=== PATIENT | female | born 1975 | race Caucasian/White ===

== ENCOUNTER 2022-08-17 09:27 | Day surgery (SDC) | payer BC ==
[~2022-08-17 09:27] MED LIST: Midazolam 1 MG/ML 2 ML SDV ONE; Propofol 200 MG/20 ML SDV ONE; fentaNYL 100 MCG/2 ML SDV ONE
[2022-08-17] MEDS ORDERED: Dextrose 5%-Lactated Ringers 1,000 ML IV SCH (10:00)
[2022-08-17] MEDS ORDERED: Glycopyrrolate 0.2 MG/ML 2 ML SDV IVPUSH ONE (10:00)
[2022-08-17] MEDS ORDERED: Lactated Ringers 1,000 ML IV SCH (10:15)
== END 2022-08-17 12:00 | disposition home or self-care (01) ==
LOC: JP.SDS 09:27
PROVIDERS: ATTEND Surgery
DX: Z46.51 Encounter for fitting and adjustment of gastric lap band (principal); I10 Essential (primary) hypertension; F32.A Depression, unspecified; F41.9 Anxiety disorder, unspecified; E66.01 Morbid (severe) obesity due to excess calories; Z68.42 Body mass index [BMI] 45.0-49.9, adult; Z79.899 Other long term (current) drug therapy; Z88.0 Allergy status to penicillin; Z88.1 Allergy status to other antibiotic agents
CPT/HCPCS: 43235; J2250; J2704; J3010; J3490; J7120

== ENCOUNTER 2022-10-18 04:56 | Inpatient (IN) | payer BC ==
[~2022-10-18 04:56] MED LIST changes: -Midazolam 1 MG/ML 2 ML SDV ONE; -Propofol 200 MG/20 ML SDV ONE; +Sodium Chloride 0.9% 10 ML Syringe FLUSH PRN; -fentaNYL 100 MCG/2 ML SDV ONE
[2022-10-18] MEDS ORDERED: Celecoxib 200 MG Cap PO ONE ×2 (05:53→06:00)
[2022-10-18] MEDS ORDERED: Scopolamine 1.5 MG Transdermal Patch TOP SCH (06:00)
[2022-10-18] MEDS ORDERED: cefOXitin 2 GM Vial ONE (06:36)
[2022-10-18] MEDS ORDERED: Bupivacaine 0.5%/EPINEPHrine 1:200,000 50 ML MDV ONE (06:36)
[2022-10-18] MEDS ORDERED: Dextrose 5%-Lactated Ringers 1,000 ML IV SCH (06:45)
[2022-10-18] MEDS ORDERED: fentaNYL 250 MCG/5 ML SDV ONE ×2 (07:05→07:52)
[2022-10-18] MEDS ORDERED: Ondansetron 4 MG/2 ML SDV ONE (07:05)
[2022-10-18] MEDS ORDERED: Rocuronium 50 MG/5 ML Vial ONE (07:05)
[2022-10-18] MEDS ORDERED: Succinylcholine 200 MG/10 ML MDV ONE (07:05)
[2022-10-18] MEDS ORDERED: Glycopyrrolate 0.2 MG/ML 5 ML MDV ONE (07:05)
[2022-10-18] MEDS ORDERED: Dexamethasone 4 MG/ML SDV ONE (07:05)
[2022-10-18] MEDS ORDERED: Neostigmine Methylsulfate 1 MG/ML 5 ML Syringe ONE (07:05)
[2022-10-18] MEDS ORDERED: Propofol 200 MG/20 ML SDV ONE (07:05)
[2022-10-18] MEDS ORDERED: cefOXitin 2 GM in Sodium Chloride 0.9% 50 ML IV ONE (07:15)
[2022-10-18] MEDS ORDERED: cefOXitin 2 GM Vial IV ONE (08:02)
[2022-10-18] MEDS ORDERED: hydrALAZINE 20 MG/ML SDV ONE (08:19)
[2022-10-18] MEDS ORDERED: fentaNYL 100 MCG/2 ML SDV ONE (09:32)
[2022-10-18] MEDS ORDERED: Lactated Ringers 1,000 ML ONE (09:33)
[2022-10-18] MEDS ORDERED: Acetaminophen 1,000 MG in Premix Bag 1 BAG IV ONE (10:00)
[2022-10-18] MEDS ORDERED: Ketamine 500 MG/5 ML MDV IV SCH (11:15)
[2022-10-18] MEDS: HYDROmorphone 1 MG/ML Syringe IV PRN ×2 (11:15→13:32)
[2022-10-18] MEDS ORDERED: HYDROmorphone 0.5 MG/0.5 ML Syringe IVPUSH PRN (11:15)
[2022-10-18] MEDS ORDERED: Ketamine 17 MG in Sodium Chloride 0.9% 19.83 ML IV SCH (11:15)
[2022-10-18] MEDS ORDERED: Cyclobenzaprine 10 MG Tab PO PRN (11:44)
[2022-10-18] MEDS ORDERED: Ondansetron 4 MG/2 ML SDV IVPUSH PRN (12:00)
[2022-10-18] MEDS ORDERED: diphenhydrAMINE 50 MG/ML SDV IVPUSH PRN (12:00)
[2022-10-18] MEDS ORDERED: Labetalol 20 MG/4 ML Syringe IVPUSH PRN (12:00)
[2022-10-18] MEDS ORDERED: Metoclopramide 10 MG/2 ML SDV IVPUSH PRN (12:00)
[2022-10-18] MEDS ORDERED: Acetaminophen 500 MG Tab PO PRN (12:00)
[2022-10-18] MEDS: hydrOXYzine HCl 50 MG/ML SDV IM PRN ×2 (12:11→16:56)
[2022-10-18] MEDS: Pantoprazole 40 MG Vial IVPUSH SCH (13:33)
[2022-10-18] MEDS: cefOXitin 2 GM in Sodium Chloride 0.9% 50 ML IV SCH ×2 (14:46→19:55)
[2022-10-18] MEDS: oxyCODONE 5 MG Tab PO PRN ×2 (14:50→21:50)
[2022-10-18] MEDS ORDERED: MVI, Adult with Vitamin K 10 ML, Thiamine 200 MG, Zinc/Copper/Manganese/Selenium 1 ML i... IV SCH ×4 (16:00)
[2022-10-18] MEDS: traMADol 50 MG Tab PO PRN (16:55)
[2022-10-18] MEDS: Acetaminophen 500 MG Tab PO SCH (17:00)
[2022-10-18] MEDS: Heparin Sodium 5,000 Units/ML Vial SUBCUT SCH (17:00)
[2022-10-18] MEDS: Dextrose 5%-Lactated Ringers 1,000 ML IV SCH (21:51)
[2022-10-19] MEDS: Acetaminophen 500 MG Tab PO SCH ×3 (02:54→18:02)
[2022-10-19] MEDS: cefOXitin 2 GM in Sodium Chloride 0.9% 50 ML IV SCH ×4 (02:55→19:46)
[2022-10-19] MEDS: hydrOXYzine HCl 50 MG/ML SDV IM PRN (03:02)
[2022-10-19] MEDS ORDERED: Iopamidol 612 MG/ML 30 ML SDV PO STA (03:28)
[2022-10-19] MEDS: Dextrose 5%-Lactated Ringers 1,000 ML IV SCH ×2 (04:08→12:22)
[2022-10-19] MEDS: oxyCODONE 5 MG Tab PO PRN ×4 (04:13→22:36)
[2022-10-19] MEDS: Heparin Sodium 5,000 Units/ML Vial SUBCUT SCH ×2 (06:04→18:01)
[2022-10-19] MEDS ORDERED: Ondansetron 4 MG Tab.DIS PO PRN (07:54)
[2022-10-19] MEDS ORDERED: hydrOXYzine HCl 25 MG Tab PO PRN (07:55)
[2022-10-19] MEDS: traMADol 50 MG Tab PO PRN (08:08)
[2022-10-19] MEDS: Celecoxib 200 MG Cap PO SCH ×2 (08:36→21:52)
[2022-10-19] MEDS: SCOPOLAMINE PATCH CHECK TOP SCH (08:36)
[2022-10-19] MEDS: Escitalopram 20 MG Tab PO SCH (08:36)
[2022-10-19] MEDS: Lisinopril 10 MG Tab PO SCH (08:37)
[2022-10-19] MEDS: Pantoprazole 40 MG Vial IVPUSH SCH (12:12)
[2022-10-19] MEDS ORDERED: MVI, Adult with Vitamin K 10 ML, Thiamine 200 MG, Zinc/Copper/Manganese/Selenium 1 ML i... IV SCH ×4 (16:00)
[2022-10-20] MEDS: Acetaminophen 500 MG Tab PO SCH ×2 (02:58→10:14)
[2022-10-20] MEDS: Dextrose 5%-Lactated Ringers 1,000 ML IV SCH (03:08)
[2022-10-20] MEDS: oxyCODONE 5 MG Tab PO PRN ×2 (05:36→11:35)
[2022-10-20] MEDS: Heparin Sodium 5,000 Units/ML Vial SUBCUT SCH (05:36)
[2022-10-20] MEDS ORDERED: Magnesium Hydroxide 400 MG/5 ML Susp 30 ML Cup PO PRN (08:25)
[2022-10-20] MEDS ORDERED: Cyanocobalamin (Vitamin B12) 1,000 MCG/ML SDV IM ONE (09:00)
[2022-10-20] MEDS: Lisinopril 10 MG Tab PO SCH (10:15)
[2022-10-20] MEDS: Escitalopram 20 MG Tab PO SCH (10:15)
[2022-10-20] MEDS: Celecoxib 200 MG Cap PO SCH (10:15)
[2022-10-20] MEDS: SCOPOLAMINE PATCH CHECK TOP SCH (10:17)
[2022-10-20] MEDS ORDERED: Pantoprazole 40 MG Delayed-Release Granules 1 Packet PO SCH (11:30)
== END 2022-10-20 12:02 | disposition home or self-care (01) | DRG 403 ==
LOC: JP.SDSSCHI 05:25 → UNDOADMIN 05:25 → JP.SDSSCHI 09:50 → JP.MS 09:50 → UNDODISIN 10-20 12:02
PROVIDERS: ADMIT Surgery; ATTEND Surgery
PROC: 0D164ZA Bypass Stomach to Jejunum, Percutaneous Endoscopic Approach (ICD-10-PCS; principal; 2022-10-18)
PROC: 0FB24ZX Excision of Left Lobe Liver, Percutaneous Endoscopic Approach, Diagnostic (ICD-10-PCS; 2022-10-18)
PROC: 0BQT4ZZ Repair Diaphragm, Percutaneous Endoscopic Approach (ICD-10-PCS; 2022-10-18)
PROC: 0DP64CZ Removal of Extraluminal Device from Stomach, Percutaneous Endoscopic Approach (ICD-10-PCS; 2022-10-18)
PROC: 0DB64ZZ Excision of Stomach, Percutaneous Endoscopic Approach (ICD-10-PCS; 2022-10-18)
PROC: 3E033XZ Introduction of Vasopressor into Peripheral Vein, Percutaneous Approach (ICD-10-PCS; 2022-10-18)
DX: E66.01 Morbid (severe) obesity due to excess calories (principal); N92.0 Excessive and frequent menstruation with regular cycle; I10 Essential (primary) hypertension; F41.9 Anxiety disorder, unspecified; F32.A Depression, unspecified; R16.0 Hepatomegaly, not elsewhere classified; K44.9 Diaphragmatic hernia without obstruction or gangrene; Z90.49 Acquired absence of other specified parts of digestive tract; Z98.890 Other specified postprocedural states; Z87.891 Personal history of nicotine dependence; Z88.1 Allergy status to other antibiotic agents; Z88.8 Allergy status to other drugs, medicaments and biological substances; Z88.2 Allergy status to sulfonamides; Z68.41 Body mass index [BMI] 40.0-44.9, adult
CPT/HCPCS: 36415; 74240; 74240-26; 82947; 84703; 86850; 86900; 86901; A9270-GY; C9113; J0131; J0171; J0330; J0360; J0694; J1100; J1170; J1644; J2405; J2704; J2710; J2795; J3010; J3410; J3411; J3420; J3490; J7120; J7121; Q9967

== ENCOUNTER 2022-12-10 07:35 | Day surgery (SDC) | payer BC ==
[~2022-12-10 07:35] MED LIST changes: +Midazolam 1 MG/ML 2 ML SDV ONE; +Propofol 200 MG/20 ML SDV ONE; -Sodium Chloride 0.9% 10 ML Syringe FLUSH PRN; +fentaNYL 50 MCG/ML SDV ONE
[2022-12-10] MEDS ORDERED: Lactated Ringers 1,000 ML IV ONE (07:40)
[2022-12-10] MEDS ORDERED: Glycopyrrolate 0.2 MG/ML 2 ML SDV IVPUSH ONE (08:00)
[2022-12-10] MEDS ORDERED: Cyanocobalamin (Vitamin B12) 1,000 MCG/ML SDV IM ONE (08:00)
[2022-12-10] MEDS ORDERED: MVI, Adult with Vitamin K 10 ML, Thiamine 200 MG, Zinc/Copper/Manganese/Selenium 1 ML i... IV ONE ×4 (09:00)
[2022-12-10] MEDS ORDERED: Dexamethasone 4 MG/ML SDV ONE (09:08)
[2022-12-10] MEDS ORDERED: Ondansetron 4 MG/2 ML SDV ONE (09:08)
== END 2022-12-10 11:23 | disposition home or self-care (01) ==
LOC: JP.SDS 07:35
PROVIDERS: ATTEND Surgery
DX: K91.89 Other postprocedural complications and disorders of digestive system (principal); K56.699 Other intestinal obstruction unspecified as to partial versus complete obstruction; Z88.1 Allergy status to other antibiotic agents; Z88.8 Allergy status to other drugs, medicaments and biological substances
CPT/HCPCS: 43245; C1726; J1100; J2250; J2405; J2704; J3010; J3411; J3420; J3490; J7120

== ENCOUNTER 2022-12-27 07:34 | Day surgery (SDC) | payer BC ==
[2022-12-27] MEDS: Lactated Ringers 1,000 ML IV ONE (07:51)
[2022-12-27] MEDS: Cyanocobalamin (Vitamin B12) 1,000 MCG/ML SDV IM ONE (08:12)
[2022-12-27] MEDS: Glycopyrrolate 0.2 MG/ML 2 ML SDV IVPUSH ONE (08:59)
[2022-12-27] MEDS: MVI, Adult with Vitamin K 10 ML, Thiamine 200 MG, Zinc/Copper/Manganese/Selenium 1 ML i... IV ONE ×4 (08:59)
[2022-12-27] MEDS ORDERED: Dexamethasone 4 MG/ML SDV ONE (09:33)
[2022-12-27] MEDS ORDERED: Ondansetron 4 MG/2 ML SDV ONE (09:33)
== END 2022-12-27 11:05 | disposition home or self-care (01) ==
LOC: JP.SDS 07:34
PROVIDERS: ATTEND Surgery
DX: K91.89 Other postprocedural complications and disorders of digestive system (principal); K31.89 Other diseases of stomach and duodenum; Z98.84 Bariatric surgery status; Z98.0 Intestinal bypass and anastomosis status; Z88.2 Allergy status to sulfonamides; Z88.1 Allergy status to other antibiotic agents
CPT/HCPCS: C1726; J1100; J2250; J2405; J2704; J3010; J3411; J3420; J3490; J7120

== ENCOUNTER 2023-01-25 08:50 | Day surgery (SDC) | payer BC ==
[2023-01-25] MEDS ORDERED: fentaNYL 50 MCG/ML SDV ONE (09:22)
[2023-01-25] MEDS ORDERED: Midazolam 1 MG/ML 2 ML SDV ONE (09:22)
[2023-01-25] MEDS ORDERED: Propofol 200 MG/20 ML SDV ONE ×2 (09:22→11:08)
[2023-01-25] MEDS ORDERED: Cyanocobalamin (Vitamin B12) 1,000 MCG/ML SDV IM ONE (09:30)
[2023-01-25] MEDS ORDERED: Lactated Ringers 1,000 ML IV SCH (09:30)
[2023-01-25] MEDS ORDERED: MVI, Adult with Vitamin K 10 ML, Thiamine 200 MG, Zinc/Copper/Manganese/Selenium 1 ML i... IV ONE ×4 (10:30)
[2023-01-25] MEDS ORDERED: Ondansetron 4 MG/2 ML SDV ONE (11:08)
[2023-01-25] MEDS ORDERED: Dexamethasone 4 MG/ML SDV ONE (11:08)
== END 2023-01-25 12:07 | disposition home or self-care (01) ==
LOC: JP.SDS 08:50
PROVIDERS: ATTEND Surgery
DX: K94.23 Gastrostomy malfunction (principal); Z98.84 Bariatric surgery status
CPT/HCPCS: 43245; 81025; J1100; J2250; J2405; J2704; J3010; J3411; J3420; J7120; J3490